=== PATIENT | male | born 1970 | race Two or more races ===

== ENCOUNTER 2020-11-06 18:20 | Emergency (ER) | payer BC, MEDICAID ==
[~2020-11-06] VITALS: Ht 180.3 cm; Wt 104.3 kg
[~2020-11-06 18:20] MED LIST: BENAZEPRIL; HCTZ; METOPROLOL
[2020-11-06 19:02] LABS: Basophils # (auto) 0.1 10 ^3/uL (0-0.2); Basophils % (auto) 1.2 % (0.0-2.0); Eosinophils # (auto) 0.2 10 ^3/uL (0-0.8); Eosinophils % (auto) 3.2 % (0.0-7.0); Hemoglobin 18.5 g/dL (13.5-17.5); Lymphocytes # (auto) 2.5 10 ^3/uL (0.4-5.4); Mean Corpuscular Hgb Conc. 36.3 g/dL (32.0-36.0); Mean Corpuscular Volume 85.4 fL (80.0-100.0); Monocytes # (auto) 0.8 10 ^3/uL (0-1.3); Red Blood Cells 5.97 10^6/uL (4.5-5.90)
[2020-11-06 19:03] LABS: Lymphocytes % (auto) 35.3 % (10.0-50.0); Monocytes % (auto) 11.4 % (0.0-12.0); Neutrophils # (auto) 3.5 10 ^3/uL (1.6-8.6); Neutrophils % (auto) 48.9 % (37.0-80.0); Nucleated Red Blood Cells % 0.6 %; Red Cell Distribution Width 12.9 % (11.8-14.3); White Blood Cell 7.2 10^3/uL (4.4-10.8)
[2020-11-06 19:25] LABS: Potassium 4.1 mmol/L (3.5-5.1)
[2020-11-06 19:36] LABS: Bilirubin, Total 0.8 mg/dL (0.2-1.0); Total Protein 8.5 g/dL (6.4-8.2)
[2020-11-06 21:30] VITALS: BP 137/83
== END 2020-11-06 21:46 | disposition home or self-care (01) ==
LOC: ER 18:22 → EDSEX 18:22 → ER 21:46
DX: R55 Syncope and collapse (principal); I10 Essential (primary) hypertension; Z79.899 Other long term (current) drug therapy
CPT/HCPCS: 36415; 70450; 71045; 80053; 84484; 85025; 93005

== ENCOUNTER 2025-02-24 10:43 | Inpatient (IN) | payer BC ==
[~2025-02-24] VITALS: Ht 180.3 cm; Wt 94.8 kg
--- NOTE | 2025-02-24 11:04 | ED.PDOC ---
History of Present Illness HPI Comments This is a 54 year old male presenting to the ED with chief complaint of abnormal labs. Patient reports that he had blood work ordered 2 days ago by his doctor after his right shoulder pain and weakness continued despite PT being done for possible "frozen shoulder". Patient relays that he received a call from his PCP today noting that his labs showed elevated liver enzymes and elevated muscle enzymes, advising him to come into the ED for further evaluation. Patient denies any chest pain, SOB, nausea, vomiting, abdominal pain, syncope, or injury at this time. Chief Complaint: Abnormal LAB's Time Seen by MD: 11:02 Reviewed Notes: Nurses Notes, Medications, Allergies Allergies: Coded Allergies: NO KNOWN ALLERGIES (Unverified , 09/01/10) Home Meds Reported Medications [Metoprolol] No Conflict Check 09/01/10 [Hctz] No Conflict Check 09/01/10 [Benazepril] No Conflict Check 09/01/10 Information Source: Patient Mode of Arrival: Ambulatory Severity: Moderate Timing: Days Duration: Since onset Prehospital treatment: None Past Medical History PAST MEDICAL HISTORY: HTN Surgical History: Denies all surgeries Family History Family History: Reviewed,noncontributory to illness, Family hx of DM, Family hx of Cancer, Family hx of heart casey Social History Smoker: Non-Smoker Alcohol: Occasionally Drugs: Denies Drug Use Lives In: Home Constitutional: reports: weakness; denies: chills, diaphoresis, fatigue, fever, malaise, sweats, others EENTM: denies: blurred vision, double vision, ear bleeding, ear discharge, ear drainage, ear pain, ear ringing, eye pain, eye redness, hearing loss, mouth pain, mouth swelling, nasal discharge, nose bleeding, nose congestion, nose pain, photophobia, tearing, throat pain, throat swelling, voice changes, others Respiratory: denies: cough, hemoptysis, orthopnea, SOB at rest, shortness of breath, SOB with excertion, stridor, wheezing, others Cardiovascular: denies: chest pain, dizzy spells, diaphoresis, Dyspnea on exertion, edema, irregular heart beat, left arm pain, lightheadedness, palpitations, PND, syncope, others Gastrointestinal: denies: abdomen distended, abdominal pain, blood streaked bowels, constipated, diarrhea, dysphagia, difficulty swallowing, hematemesis, melena, nausea, poor appetite, poor fluid intake, rectal bleeding, rectal pain, vomiting, others Genitourinary: denies: burning, dysuria, flank pain, frequency, hematuria, incontinence, penile discharge, penile sore, pain, testicle pain, testicle swelling, urgency, others Neurological: denies: dizziness, fainting, headache, left sided numbness, left sided weakness, numbness, paresthesia, pre-existing deficit, right sided numbness, right sided weakness, seizure, speech problems, tingling, tremors, weakness, others Musculoskeletal: reports: others (Rt shoulder pain); denies: back pain, gout, joint pain, joint swelling, muscle pain, muscle stiffness, neck pain Integumetry: denies: bruises, change in color, change in hair/nails, dryness, laceration, lesions, lumps, rash, wounds, others Allergic/Immunocompromised: denies: Difficulty Healing, Frequent Infections, Hives, Itching, others Hematologic/Lymphatic: denies: anemia, blood clots, easy bleeding, easy bruising, swollen glands, others Endocrine: denies: excessive hunger, excessive sweating, excessive thirst, excessive urination, flushing, intolerance to cold, intolerance to heat, unexplained weight gain, unexplained weight loss, others Psychiatric: denies: anxiety, bipolar disorder, depression, hopeless, panic disorder, schizophrenia, sleepless, suicidal, others All Other Systems: Reviewed and Negative Physical Exam General Appearance: Moderate Distress HEENT: Normal ENT Inspection, Pharynx Normal, TMs Normal Neck: Full Range of Motion, Non-Tender, Normal, Normal Inspection Respiratory: Chest Non-Tender, Lungs Clear, No Accessory Muscle Use, No Respiratory Distress, Normal Breath Sounds Cardiovascular: No Edema, No JVD, No Murmur, No Gallop, Normal Peripheral Pulses, Regular Rate/Rhythm Breast Exam: Deferred Gastrointestinal: Diffuse, No Organomegaly, No Pulsatile Mass, Normal Bowel Sounds, Soft, Tenderness Genitalia: Deferred Pelvic: Deferred Rectal: Deferred Extremities: No calf tenderness, Normal capillary refill, Normal inspection, Normal range of motion, Non-tender, No pedal edema Musculoskeletal : Apperance: Normal Neurologic: Alert, director 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 Was a procedure done?: No Differential Dx Considerations may include: Viral syndrome, rhabdomyolysis, elevated liver enzymes, generalized weakness X-Ray, Labs, Meds, VS Vital Signs Date Time Temp Pulse Resp B/P (MAP) Pulse Ox O2 Delivery O2 Flow Rate FiO2 02/24/25 10:56 86 02/24/25 10:44 97.8 94 18 151/82 96 97.8 Lab Test 02/24/25 11:10 Range/Units White Blood Count 9.5 4.4-10.8 10^3/uL Red Blood Count 5.64 4.5-5.90 10^6/uL Hemoglobin 16.4 13.5-17.5 g/dL Hematocrit 47.6 41.0-53.0 % Mean Corpuscular Volume 84.3 80.0-100.0 fL Mean Corpuscular Hemoglobin 29.1 28.0-32.0 pg Mean Corpuscular Hemoglobin Concent 34.5 32.0-36.0 g/dL Red Cell Distribution Width 15.9 H 11.8-14.3 % Platelet Count 228 140-450 10^3/uL Mean Platelet Volume 8.0 6.9-10.8 fL Neutrophils (%) (Auto) 73.4 37.0-80.0 % Lymphocytes (%) (Auto) 16.6 10.0-50.0 % Monocytes (%) (Auto) 7.0 0.0-12.0 % Eosinophils (%) (Auto) 1.9 0.0-7.0 % Basophils (%) (Auto) 1.1 0.0-2.0 % Neutrophils # (Auto) 7.0 1.6-8.6 10 ^3/uL Lymphocytes # (Auto) 1.6 0.4-5.4 10 ^3/uL Monocytes # (Auto) 0.7 0-1.3 10 ^3/uL Eosinophils # (Auto) 0.2 0-0.8 10 ^3/uL Basophils # (Auto) 0.1 0-0.2 10 ^3/uL Nucleated Red Blood Cells 0.0 % Sodium Level 139 136-145 mmol/L Potassium Level 4.6 3.5-5.1 mmol/L Chloride Level 98 98-107 mmol/L Carbon Dioxide Level 32 H 20-31 mmol/L Anion Gap 9 5-15 Blood Urea Nitrogen 13 9-23 mg/dL Creatinine 0.56 L 0.700-1.30 mg/dL Glomerular Filtration Rate Calc 118 >90 mL/min BUN/Creatinine Ratio 23.2 H 10.0-20.0 Serum Glucose 106 74-106 mg/dL Calcium Level 8.9 8.7-10.4 mg/dL Total Bilirubin 0.9 0.2-1.0 mg/dL Aspartate Amino Transferase (AST) 1243 H 13-40 U/L Alanine Aminotransferase (ALT) 1119 H 7-40 U/L Alkaline Phosphatase 33 L 46-116 U/L Creatine Kinase > 31809 H 46-171 U/L Troponin I High Sensitivity 35 </=54 ng/L Total Protein 7.5 5.7-8.2 g/dL Albumin 4.3 3.2-4.8 g/dL Lipase 44 12-53 U/L CAT scan of the abdomen and pelvis shows: IMPRESSION: Limited evaluation without contrast. No hydronephrosis/nephrolithiasis. Moderate volume stool in the colon. Prostatomegaly. Correlate with PSA levels. At this time, [place] [address] The ALT and AST are significantly elevated The patient is being admitted at this time An IV Hep-Lock was established and the patient was given 1 L bolus of normal saline The patient understands and agrees with the management. Images Reviewed?: Images reviewed and evaluated by me Time of 1ST Reevaluation: 12:51 Reevaluation 1ST: Unchanged Patient Education/Counseling: Diagnosis, Treatment, Prognosis Family Education/Counseling: No Family Present SEPSIS Sepsis Screen Date sepsis recognized/suspect: Feb 24, 2025 Time Sepsis recognized/suspect: 1046 Recent Procedure: No On Antibiotic Therapy: No Respiratory Rate >20: No Heart Rate >90: Yes Temp<36 C (96.8 F) or >38.3 C: No SBP <90 or MAP <65 mmHG: No New Acute Mental Status Change: No Is the patient on CPAP, BIPAP,: No Physician Orders Electrocardigram (02/24/25 11:03) Ct Ab Pel Wo Con-No Oral Or Iv (02/24/25 11:56) Heplock Iv (02/24/25 11:56) Psychological Operations Officer (02/24/25 11:56) Blood Pressure (02/24/25 11:56) Pulse Oximetry (02/24/25 11:56) Vital Signs Date Time Temp Pulse Resp B/P (MAP) Pulse Ox O2 Delivery O2 Flow Rate FiO2 02/24/25 10:56 86 02/24/25 10:44 97.8 94 18 151/82 96 97.8 Laboratory Tests Test 02/24/25 11:10 White Blood Count 9.5 10^3/uL (4.4-10.8) Departure 1 Departure Time of Disposition: 12:49 Impression: Primary Impression: Intractable abdominal pain Additional Impressions: Elevated CPK Elevated liver enzymes Disposition: ADMITTED INPATIENT Admit to: Med Surg Condition: Fair Critical Care Note Critical Care Time?: No Stability Stability form required: Yes Unstable for transfer: ED Physician Assesment (Clinical assesment) Heart Score Heart Score: Heart Score Response (Comments) Value History N/A 0 EKG N/A 0 Age N/A 0 Risk Factors N/A 0 Troponin N/A 0 Total 0 I personally scribed for CLAYTON DESIR MD ([email or web address]) on 02/24/25 at 11:04. Electronically submitted by Jayme Durán ([email or web address]). CLAYTON DESIR MD Feb 24, 2025 11:04
[2025-02-24 11:27] LABS: Hematocrit 47.6 % (41.0-53.0); Hemoglobin 16.4 g/dL (13.5-17.5); Mean Corpuscular Hemoglobin 29.1 pg (28.0-32.0); Mean Corpuscular Volume 84.3 fL (80.0-100.0); Nucleated Red Blood Cells % 0.0 %
[2025-02-24 11:41] LABS: Albumin 4.3 g/dL (3.2-4.8); Anion Gap 9 (5-15); BUN/Creatinine Ratio 23.2 (10.0-20.0); Bilirubin, Total 0.9 mg/dL (0.2-1.0); Blood Urea Nitrogen 13 mg/dL (9-23); Calcium 8.9 mg/dL (8.7-10.4); Chloride 98 mmol/L (98-107); Glucose 106 mg/dL (74-106); Potassium 4.6 mmol/L (3.5-5.1); Sodium 139 mmol/L (136-145); Total Protein 7.5 g/dL (5.7-8.2)
[2025-02-24 11:44] LABS: Alkaline Phosphatase 33 U/L (46-116); Carbon Dioxide 32 mmol/L (20-31)
[2025-02-24 11:52] LABS: Alanine Aminotransferase 1119 U/L (7-40)
[2025-02-24 11:53] LABS: Creatine Kinase IFCC > 39000 U/L (46-171)
--- NOTE | 2025-02-24 12:35 | DVH ---
Indication: PAIN Technique: CT axial images of the abdomen and pelvis are obtained without contrast. Coronal and sagit mario reformats were obtained. Comparison: None FINDINGS: There is limited interpretation of the abdomen and pelvis without administration of intravenous contr ast. Lung bases demonstrate no pleural effusion. Adrenal glands, spleen, pancreas and liver unremarkable in shape. No CT evidence for cholelithiasis. No hydronephrosis/ nephrolithiasis. Stomach is partially distended. Small bowel loops are normal in caliber. Moderate volume stool in the colon. Normal appendix. Abdominal aortic atherosclerotic disease. Bladder is partially distended. The prostate measures 6 cm transversely. No free pelvic fluid. No inguinal lymphadenopathy. No aggressive osseous process. [id number] thoracolumbar degenerative disc disease IMPRESSION: Limited evaluation without contrast. No hydronephrosis/nephrolithiasis. Moderate volume stool in the colon. Prostatomegaly. Correlate with PSA levels. Other findings as described.
--- NOTE | 2025-02-24 15:32 | ECG ---
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
[2025-02-24] MEDS: SODIUM CHLORIDE 0.9% 2,000 ML IV ONE (19:03)
[2025-02-24 19:10] VITALS: PULSE 81; RESP 20; O2SAT 97
[2025-02-24 20:52] LABS: Magnesium 1.8 mg/dL (1.6-2.6)
--- NOTE | 2025-02-24 21:40 | DVHHPRES ---
History of Present Illness Resident Creating Document: ERICKA DEE History of Present Illness Mr. Smith is a 54-year-old male with prior medical history of hypertension and hyperlipidemia, who presents today with chief complaint of bilateral shoulder and thigh weakness and abnormal labs. The patient states that a year ago he began to have stiffness in his left shoulder, later affecting his right shoulder as well, associated with weakness. He states he is currently unable to abduct his arms beyond 15 degrees. He states that 4-5 months ago he began to have stiffness and weakness in bilateral legs, mainly affecting quadriceps and hips. He states he has difficulty when trying to stand from a seated position and climbing stairs. Patient reports that for the last 2-3 weeks he has had difficulty swallowing food, it feels as if it gets stuck and needs to drink water to help food pass. He denies joint or muscular pain, nausea, vomiting, fever, recent trauma or infections, difficulty breathing, chest pain, palpitations, and other symptoms. The patient went to his PCP who conducted blood work and upon review of results told the patient to come to the emergency room. On evaluation in the ED, the patient was afebrile and vitals are stable. Initial labs show CBC within normal range, AST 1243, ALT 1119, ALP 30, and creatinine kinase >[address]. [address] shows now hydronephrosis/nephrolithiasis, moderate volume stool in the colon, and prostatomegaly. The patient was started on IV fluids and was admitted for further workup and monitoring. Cardiovascular: HTN, hyperipidemia Past Surgical History: None Family History: Cancer (Prostate cancer in father) Smoke: Quit (States he smoked a pack a weekend and stopped 30 years ago) ALCOHOL: none (Refers previous heavy drinking every weekend per states he quit 20 years ago) Drugs: Cocaine, Other (Reports previous history of methamphetamines states he used for five years and quit 30 years ago, reports previous use of PCP with sensation 30 years ago) Lives: with Family Domestic Violence: Neg Review of Systems Review of Systems Constitutional: Denies weight loss, fever and chills. HEENT: Denies changes in vision and hearing. Respiratory: Denies shortness of breath and cough Cardiovascular: Denies chest discomfort or palpitations GI: Refers dysphagia, Denies abdominal distention, abdominal pain, diarrhea : Denies dysuria and urinary frequency. Musculoskeletal: Refers proximal muscle weakness in shoulders and hips, denies muscle pain Skin: Denies rash and pruritus. Neurological: denies dizziness headache vision or hearing problems Allergies: Coded Allergies: NO KNOWN ALLERGIES (Unverified , 09/01/10) Medications Current Medications Medications Dose Ordered Sig/Dario Route Start Time Stop Time Status Last Admin Dose Admin Enoxaparin Sodium 40 mg DAILY SC 02/25/25 10:00 Sodium Chloride 1,000 ml @ 100 mls/hr Q10H IV 02/24/25 21:15 Methylprednisolone Sodium Succinate 40 mg BID IV 02/24/25 22:00 Pantoprazole Sodium 40 mg DAILY IV 02/24/25 21:15 Exam Vital Signs Vital Signs Date Time Temp Pulse Resp B/P (MAP) Pulse Ox O2 Delivery O2 Flow Rate FiO2 02/24/25 19:10 81 20 97 Room Air* 0 21 02/24/25 18:11 98.6 154/86 (108) 98.6 Exam General: The patient alert and oriented in person place and time. Patient following commands HEENT: Normocephalic, atraumatic, normal reactive pupils, EOM intact, pink conjunctiva, pink moist mucous membrane Respiratory/pulmonary: Bilateral chest expansion, no pain on palpation of chest wall, clear lungs bilaterally, vesicular murmurs present in almost all lung michael, no associated crackles or wheezes. Cardiovascular: Normal RRR, normal S1 and S2, no murmurs Abdomen: Abdomen nondistended, normal bowel sounds, soft, there is no pain to palpation in any of the abdominal quadrants, no palpable masses. Extremities: No deformities, there is no peripheral edema present at the lower extremities, normal pulses, inability to raise bilateral arms beyond 15 of abduction during active movements, no alteration of passive movements, inability to raise bilateral legs during active movement, no alterations during passive movements, no pain on palpation Skin: No rashes or pruritus, there is no sacral edema present at this time. Neurological: Intact cranial nerves with no focal neurologic deficits Labs/Xrays Labs Test 02/24/25 20:45 02/24/25 11:10 Range/Units White Blood Count 9.5 4.4-10.8 10^3/uL Red Blood Count 5.64 4.5-5.90 10^6/uL Hemoglobin 16.4 13.5-17.5 g/dL Hematocrit 47.6 41.0-53.0 % Mean Corpuscular Volume 84.3 80.0-100.0 fL Mean Corpuscular Hemoglobin 29.1 28.0-32.0 pg Mean Corpuscular Hemoglobin Concent 34.5 32.0-36.0 g/dL Red Cell Distribution Width 15.9 H 11.8-14.3 % Platelet Count 228 140-450 10^3/uL Mean Platelet Volume 8.0 6.9-10.8 fL Neutrophils (%) (Auto) 73.4 37.0-80.0 % Lymphocytes (%) (Auto) 16.6 10.0-50.0 % Monocytes (%) (Auto) 7.0 0.0-12.0 % Eosinophils (%) (Auto) 1.9 0.0-7.0 % Basophils (%) (Auto) 1.1 0.0-2.0 % Neutrophils # (Auto) 7.0 1.6-8.6 10 ^3/uL Lymphocytes # (Auto) 1.6 0.4-5.4 10 ^3/uL Monocytes # (Auto) 0.7 0-1.3 10 ^3/uL Eosinophils # (Auto) 0.2 0-0.8 10 ^3/uL Basophils # (Auto) 0.1 0-0.2 10 ^3/uL Nucleated Red Blood Cells 0.0 % Sodium Level 139 136-145 mmol/L Potassium Level 4.6 3.5-5.1 mmol/L Chloride Level 98 98-107 mmol/L Carbon Dioxide Level 32 H 20-31 mmol/L Anion Gap 9 5-15 Blood Urea Nitrogen 13 9-23 mg/dL Creatinine 0.56 L 0.700-1.30 mg/dL Glomerular Filtration Rate Calc 118 >90 mL/min BUN/Creatinine Ratio 23.2 H 10.0-20.0 Serum Glucose 106 74-106 mg/dL Hemoglobin A1c 5.6 <5.7 % A1C Calcium Level 8.9 8.7-10.4 mg/dL Phosphorus Level 3.9 2.4-5.1 mg/dL Magnesium Level 1.8 1.6-2.6 mg/dL Total Bilirubin 0.9 0.2-1.0 mg/dL Aspartate Amino Transferase (AST) 1243 H 13-40 U/L Alanine Aminotransferase (ALT) 1119 H 7-40 U/L Alkaline Phosphatase 33 L 46-116 U/L Creatine Kinase > 82654 H 46-171 U/L Troponin I High Sensitivity 35 </=54 ng/L Total Protein 7.5 5.7-8.2 g/dL Albumin 4.3 3.2-4.8 g/dL Lipase 44 12-53 U/L Vitamin B12 Level 344 211-911 pg/mL Vitamin D 25-Hydroxy 31.3 30.0-100 ng/mL Thyroid Stimulating Hormone (TSH) 3.57 0.55-4.78 uIU/mL SEPSIS Sepsis Screen Date sepsis recognized/suspect: Feb 24, 2025 Time Sepsis recognized/suspect: 1818 Recent Procedure: No On Antibiotic Therapy: No Respiratory Rate >20: No Heart Rate >90: No Temp<36 C (96.8 F) or >38.3 C: No SBP <90 or MAP <65 mmHG: No New Acute Mental Status Change: No Is the patient on CPAP, BIPAP,: No Physician Orders * Gi Dvh Repairer Handtools (02/24/25 16:59) Urinalysis (02/24/25 20:27) Drug Screen (02/24/25 20:27) Comprehensive Hepatitis Panel (02/24/25 20:27) Code Status (02/24/25 21:10) Enoxaparin Sodium (Lovenox) (02/25/25 10:00) Condition: Stable (02/24/25 21:10) Admit (02/24/25 21:10) Vital Signs .PER UNIT PROTOCOL (02/24/25 21:10) Review Orders With Adm. (02/24/25 21:10) Notify Md Of Changes From Base (02/24/25 21:10) Advance Directive (02/24/25 21:10) Patient Condition (02/24/25 21:10) Allergies (02/24/25 21:10) Stat Ekg For Chest Pain (02/24/25 21:10) Notify Md Of Changes From Base (02/24/25 21:10) Emergency Dysrhythmia Protocol (02/24/25 21:10) Rhythm Strips Once Every Shift (02/24/25 21:10) Regular Diet (02/25/25 Breakfast) Complete Blood Count (02/25/25 04:00) Comprehensive Metabolic Panel (02/25/25 04:00) Creatine Kinase (02/25/25 04:00) Aldolase (02/25/25 04:00) Lactate Dehydrogenase (02/25/25 04:00) Dayna; Comprehensive Panel (02/24/25 21:10) Acetaminophen (02/24/25 21:10) Sodium Chloride 0.9% (02/24/25 21:15) Methylprednisolone Sod Succ (Solu Medrol (02/24/25 22:00) Pantoprazole (Protonix) (02/24/25 21:15) * Radiologist Consult (02/24/25 21:10) Vital Signs Date Time Temp Pulse Resp B/P (MAP) Pulse Ox O2 Delivery O2 Flow Rate FiO2 02/24/25 19:10 81 20 97 Room Air* 0 21 02/24/25 18:11 98.6 94 20 154/86 (108) 96 98.6 02/24/25 18:11 94 20 96 Room Air Laboratory Tests Test 02/24/25 11:10 White Blood Count 9.5 10^3/uL (4.4-10.8) Medications Medications Dose Ordered Sig/Dario Route Start Time Stop Time Status Last Admin Dose Admin Sodium Chloride 2,000 ml @ 1,000 mls/hr Q2H ONCE IV 02/24/25 19:00 02/24/25 20:59 DC 02/24/25 19:03 1,000 MLS/HR Assessment/Plan Assessment/Plan Assessment and Plan: Possible Polymyositis -Methylprednisolone 40 mg IV b.i.d. -Protonix 40 mg IV daily -Aldolase and LDH have been ordered -DAYNA comprehensive panel has been ordered -Radiology consult for muscle biopsy has been ordered Rhabdomyolysis secondary to above - NS 1000 cc bolus once - NS maintenance 100 cc/hr - Monitor kidney function Transaminitis likely due to above - Comprehensive hepatitis panel has been ordered - GI consult has been ordered - Monitor LFTs Hypertension - Monitor BP - Currently not on any home medications Hyperlipidemia - Currently diet controlled Diet: Regular DVT prophylaxis: Lovenox 40 mg SC daily GI prophylaxis: Protonix mg IV daily Case discussed with Dr. German Goals of care discussed with the patient and his at bedside for over 25 minutes. Full code. Plan discussed with: Patient, Spouse, Other (Nurses) My Orders Orders - ERICKA DEE RESIDENT Procedure Category Date Status Time Urinalysis LAB 02/24/25 Logged 20:27 Drug Screen LAB 02/24/25 Logged 20:27 Comprehensive LAB 02/24/25 In Process Hepatitis Panel 20:27 Code Status CODE 02/24/25 Transmitted 21:10 Enoxaparin Sodium PHA 02/25/25 In Process (Lovenox) 10:00 Condition: Stable KIMBERLY 02/24/25 In Process 21:10 Admit ADMIT 02/24/25 Transmitted 21:10 Vital Signs KIMBERLY 02/24/25 In Process 21:10 Review Orders With [facility] 02/24/25 In Process Adm.Md 21:10 Notify Md Of Changes [facility] 02/24/25 In Process From Base 21:10 Advance Directive [facility] 02/24/25 In Process 21:10 Patient Condition ORDERS 02/24/25 Transmitted 21:10 Allergies KIMBERLY 02/24/25 In Process 21:10 Stat Ekg For Chest [facility]IM[facility] 02/24/25 In Process Pain 21:10 Notify Md Of Changes [facility] 02/24/25 In Process From Base 21:10 Emergency Dysrhythmia [facility] 02/24/25 In Process Protocol 21:10 Rhythm Strips Once [facility] 02/24/25 In Process Every Shift 21:10 Regular Diet DIET 02/25/25 Transmitted Breakfast Complete Blood Count LAB 02/25/25 Verified 04:00 Comprehensive LAB 02/25/25 Verified Metabolic Panel 04:00 Creatine Kinase LAB 02/25/25 Verified 04:00 Aldolase LAB 02/25/25 Verified 04:00 Lactate Dehydrogenase LAB 02/25/25 Verified 04:00 Dayna; Comprehensive LAB 02/24/25 Logged Panel 21:10 Acetaminophen LAB 02/24/25 In Process 21:10 Sodium Chloride 0.9% PHA 02/24/25 In Process 21:15 Methylprednisolone PHA 02/24/25 In Process Sod Succ (Solu Medrol 22:00 Pantoprazole PHA 02/24/25 In Process (Protonix) 21:15 * Radiologist Consult CONS 02/24/25 Transmitted 21:10 Date of Service: Feb 24, 2025 Billing Provider: DAMIEN HONG MD Common Visit Codes: [id number] INP/OBS CARE (HIGH) Secondary Visit Codes: [id number] CARE PLAN 30 MINUTES ERICKA DEE RESIDENT Feb 24, 2025 21:40 JEREMIAS WALDEN RESIDENT Feb 25, 2025 04:36
[2025-02-24 22:00] VITALS: RESP 22; O2SAT 97
[2025-02-24] MEDS: SODIUM CHLORIDE 0.9% 1,000 ML IV SCH (22:25)
[2025-02-24] MEDS: PANTOPRAZOLE 40 MG/10 ML VIAL INJ IV SCH (22:25)
[2025-02-24] MEDS: methylPREDNISolone SOD SUCC 40 MG/ML VL IV SCH (22:25)
[2025-02-24 23:26] VITALS: BP 136/89; PULSE 77; RESP 17; TEMP 98.7; O2SAT 95
[2025-02-25 00:57] VITALS: BP 135/84; PULSE 86; RESP 18; TEMP 98.6; O2SAT 95
[2025-02-25 02:55] LABS: Urine Protein, UAD 1+ (Negative)
[2025-02-25 03:47] LABS: Amphetamine Screen, Urine Neg (NEGATIVE); Barbiturate Scree,Urine Neg (NEGATIVE); Benzodiazephine Screen, Urine Neg (NEGATIVE); Cannabinoid Screen, Urine Neg (NEGATIVE); Cocaine Screen, Urine Neg (NEGATIVE); Opiate Scree,Urine Neg (NEGATIVE); Phencyclidine Screen, Urine Neg (NEGATIVE)
[2025-02-25 04:47] VITALS: BP 145/79; PULSE 79; RESP 17; TEMP 97.9; O2SAT 97
[2025-02-25 06:03] LABS: Hematocrit 46.6 % (41.0-53.0); Hemoglobin 16.2 g/dL (13.5-17.5); Mean Corpuscular Hemoglobin 29.4 pg (28.0-32.0); Mean Corpuscular Volume 84.7 fL (80.0-100.0); Nucleated Red Blood Cells % 0.0 %
[2025-02-25 06:14] LABS: Albumin 3.7 g/dL (3.2-4.8); Anion Gap 9 (5-15); BUN/Creatinine Ratio 29.4 (10.0-20.0); Blood Urea Nitrogen 15 mg/dL (9-23); Carbon Dioxide 26 mmol/L (20-31); Chloride 104 mmol/L (98-107); Potassium 4.2 mmol/L (3.5-5.1); Sodium 139 mmol/L (136-145); Total Protein 6.5 g/dL (5.7-8.2)
[2025-02-25 06:15] LABS: Bilirubin, Total 0.7 mg/dL (0.2-1.0)
[2025-02-25 06:17] LABS: Alanine Aminotransferase 930 U/L (7-40); Alkaline Phosphatase 30 U/L (46-116); Calcium 8.4 mg/dL (8.7-10.4); Glucose 152 mg/dL (74-106)
[2025-02-25 06:25] LABS: Creatine Kinase IFCC 28735 U/L (46-171)
[2025-02-25 08:00] LABS: INR 1.06 (0.9-1.15); Partial Thromboplastin Time 29.0 SEC (24.5-34.5); Prothrombin Time 11.2 sec (9.3-11.8)
[2025-02-25 09:00] VITALS: BP 132/79; PULSE 72; RESP 16; TEMP 98; O2SAT 94
--- NOTE | 2025-02-25 10:08 | DVHPNRES ---
Progress Note Date Seen: Feb 25, 2025 Resident Creating Document: ELTON RODRIGUEZ RESIDENT Medical Necessity Reason Pt with a Central, PICC or Fol: No Subjective Review of Systems Patient is 54-year-old male with prior medical history of hypertension and hyperlipidemia, who presents today with chief complaint of bilateral shoulder and thigh weakness and abnormal labs. The patient states that a year ago he began to have stiffness in his left shoulder, later affecting his right shoulder as well, associated with weakness. He states he is currently unable to abduct his arms beyond 15 degrees. He states that 4-5 months ago he began to have stiffness and weakness in bilateral legs, mainly affecting quadriceps and hips. He states he has difficulty when trying to stand from a seated position and climbing stairs. Patient reports that for the last 2-3 weeks he has had difficulty swallowing food, it feels as if it gets stuck and needs to drink water to help food pass. He denies joint or muscular pain, nausea, vomiting, fever, recent trauma or infections, difficulty breathing, chest pain, palpitations, and other symptoms. The patient went to his PCP who conducted blood work and upon review of results told the patient to come to the emergency room. Patient reported he used to take en clomiphene, then tested stone, lately he was taking herbal medication. On evaluation in the ED, the patient was afebrile and vitals are stable. Initial labs show CBC within normal range, AST 1243, ALT 1119, ALP 30, likely dehydrogenase 2821, and creatinine kinase >15168. Abdominal pelvis [address] shows now hydronephrosis/nephrolithiasis, moderate volume stool in the colon, and prostatomegaly. UDS negative. Plasma alcohol< 3. Urinalysis negative for UTI. Cardiovascular: HTN, hyperipidemia Past Surgical History: None Family History: Cancer (Prostate cancer in father) Smoke: Quit (States he smoked a pack a weekend and stopped 30 years ago) ALCOHOL: none (Refers previous heavy drinking every weekend per states he quit 20 years ago) Drugs: Cocaine, Other (Reports previous history of methamphetamines states he used for five years and quit 30 years ago, reports previous use of PCP with sensation 30 years ago) Lives: with Family Patient was seen today at bedside, labs and chart reviewed. Patient with difficulty from getting came from the chair with the support. Patient used to take enclomiphene, testosterone, of the hardware medications. Denied acute muscle pain or tenderness. Ordered serum cortisol level, acute hepatitis panel, blood alcohol level. Patient reported almost 6 lb of weight over last couple of months. But did not any fever. Plan is to monitor CK trend tomorrow morning. Objective vital signs Vital Sign Date Time Temp Pulse Resp B/P (MAP) Pulse Ox O2 Delivery O2 Flow Rate FiO2 02/25/25 04:47 97.9 79 17 145/79 (101) 97 97.9 02/24/25 23:26 Room Air* 0 21 Total Intake and Output 02/24/25 02/24/25 02/25/25 15:00 23:00 07:00 Intake Total 600 ml Balance 600 ml medications Current Medications Medications Dose Ordered Sig/Dario Route Start Time Stop Time Status Last Admin Dose Admin Enoxaparin Sodium 40 mg DAILY SC 02/25/25 10:00 Methylprednisolone Sodium Succinate 40 mg BID IV 02/24/25 22:00 02/24/25 22:25 40 MG Pantoprazole Sodium 40 mg DAILY IV 02/24/25 21:15 02/24/25 22:25 40 MG Sodium Chloride 1,000 ml @ 250 mls/hr Q4H IV 02/25/25 08:15 Examination General examination- awake, alert, oriented HEENT- PEERLA, no acute nasal discharge Cardiovascular- S1-S2 audible, rate and rhythm regular, no murmur Respiratory- CTAB, no wheeze or rhonchi Gastrointestinal-nontender, bowel sound+. Nondistended Musculoskeletal-no acute joint swelling or tenderness or redness extremity-no leg edema, has a difficulty getting off the chair with the support, patient also could raise his bilateral upper extremity up to 15 degree. Neurological- cranial nerves intact, no acute dysarthria or dysphagia Psychiatry- denies depression or SI or HI Skin- no acute rash or purpura laboratory and microbiology Laboratory Tests 02/25/25 05:08 Test 02/25/25 05:08 Range/Units Serum Glucose 152 H 74-106 mg/dL Problem List/Assessment/Plan Problem List/Assessment/Plan Assessment and plan-rhabdomyolysis with a transaminitis under evaluation, pending CLIMATOLOGY PROFESSOR, serum cortisol a.m. and p.m.. We will continue IV fluid for now 250 mL/hour, we will titrate dose tomorrow morning. No steroid at this moment. We will monitor CMP, CBC, CK. #Possible Polymyositis, # muscle stiffness of the shoulder girdle and hip muscle -patient complained of weakness in the shoulder girdle and hip muscle -limited range of motion in the shoulder and hip -denied using statin, TSH with a normal limit, no vigorous exercise lately. -AST 1243, ALT 1119, alkaline phosphatase 33, CPK> 76103 -pending DAYNA, Zulma 1 antibody, chromatin antibody, centromere antibody. CLIMATOLOGY PROFESSOR -TSH with a normal limit -continue current conservative management #Rhabdomyolysis secondary to above - NS maintenance 250 0 mL/hour - Monitor kidney function #Transaminitis likely due to above --AST 1243, ALT 1119, alkaline phosphatase 33 -pending acute hepatitis panel - Monitor LFTs #Hypertension - Monitor BP - Currently not on any home medications #Hyperlipidemia - Currently diet controlled Goals of care, Code status ; discussed with >15 minutes PUD prophylaxis: Pantoprazole DVT prophylaxis: Lovenox Plan discussed with Dr. Sprague , nursing staff, Total time spent on patient evaluation, chart review, assessment and plan, discussion discussion >35 minutes Plan discussed with: Patient, Spouse, Other (RN) My Orders My Orders Orders - ELTON RODRIGUEZ Procedure Category Date Status Time Dayna; Direct LAB 02/25/25 In Process 08:01 Sodium Chloride 0.9% PHA 02/25/25 In Process 08:15 Erythrocyte LAB 02/25/25 In Process Sedimentation Rate 08:20 Date of Service: Feb 25, 2025 Billing Provider: SARAH SPRAGUE MD Common Visit Codes: [id number] INP/OBS CARE(HIGH) ELTON RODRIGUEZ Feb 25, 2025 10:08 SARAH SPRAGUE MD Feb 25, 2025 20:03
[2025-02-25] MEDS: ENOXAPARIN SOD 40 MG/0.4 ML SYRINGE SC SCH (10:53)
[2025-02-25] MEDS: SODIUM CHLORIDE 0.9% 1,000 ML IV SCH ×2 (10:53→21:00)
[2025-02-25 11:46] LABS: Hepatitis B Surface Antigen Negative (Negative)
--- NOTE | 2025-02-25 12:50 | DVHINCON2 ---
GI Consult Consult Note GI consult note Date of Consultation: 02/25/2025 Chief Complaint: Elevated liver enzymes Referring Physician: Dr. Mayfield H&P: 54-year-old male presented to ER with complains of bilateral shoulder and thigh weakness with abnormal labs. GI was consulted for elevated liver enzymes. Patient denies abdominal pain. No nausea or vomiting. Denies melena or red blood in stool. No EGD or colonoscopy in past. Denies history of hepatitis. Occasional difficulty swallowing with certain foods and needs to drink water to help pass the food. Patient admits to having an alcoholic drink every two weeks. Denies use of Tylenol Past Medical History: HTN, hyperipidemia Past Surgical History: Denies Social History: Smoke: Quit (States he smoked a pack a weekend and stopped 30 years ago) ALCOHOL: none (Refers previous heavy drinking every weekend per states he quit 20 years ago) Drugs: Cocaine, Other (Reports previous history of methamphetamines states he used for five years and quit 30 years ago, reports previous use of PCP with sensation 30 years ago) Lives: with Family Family History: Noncontributory Review of Systems: Constitutional: no fever, chill, weight loss HEENT: no eye pain, no hearing loss, no oral lesion, no scleral icterus Heart: no chest pain, no chest pressure Lung: no cough, no dyspnea with exertion Abdomen: see HPI Physical exam: General: NAD, AAOX3 Chest: lung michael clear to auscultation Heart: RRR, no murmur Abdomen: non-distended, no tenderness to palpation, +BS Labs: Labs Test 02/25/25 11:06 02/25/25 05:08 02/25/25 05:05 02/25/25 02:05 Range/Units Plasma/Serum Blood Alcohol < 3.0 <10 mg/dL Hepatitis B Surface Antigen Negative Negative White Blood Count 8.9 4.4-10.8 10^3/uL Red Blood Count 5.50 4.5-5.90 10^6/uL Hemoglobin 16.2 13.5-17.5 g/dL Hematocrit 46.6 41.0-53.0 % Mean Corpuscular Volume 84.7 80.0-100.0 fL Mean Corpuscular Hemoglobin 29.4 28.0-32.0 pg Mean Corpuscular Hemoglobin Concent 34.7 32.0-36.0 g/dL Red Cell Distribution Width 15.7 H 11.8-14.3 % Platelet Count 219 140-450 10^3/uL Mean Platelet Volume 8.3 6.9-10.8 fL Neutrophils (%) (Auto) 88.3 H 37.0-80.0 % Lymphocytes (%) (Auto) 9.1 L 10.0-50.0 % Monocytes (%) (Auto) 2.2 0.0-12.0 % Eosinophils (%) (Auto) 0.1 0.0-7.0 % Basophils (%) (Auto) 0.3 0.0-2.0 % Neutrophils # (Auto) 7.9 1.6-8.6 10 ^3/uL Lymphocytes # (Auto) 0.8 0.4-5.4 10 ^3/uL Monocytes # (Auto) 0.2 0-1.3 10 ^3/uL Eosinophils # (Auto) 0 0-0.8 10 ^3/uL Basophils # (Auto) 0 0-0.2 10 ^3/uL Nucleated Red Blood Cells 0.0 % Erythrocyte Sedimentation Rate 2 0-20 mm/hr Prothrombin Time 11.2 9.3-11.8 sec Prothrombin Time INR 1.06 0.9-1.15 Activated Partial Thromboplast Time 29.0 24.5-34.5 SEC Sodium Level 139 136-145 mmol/L Potassium Level 4.2 3.5-5.1 mmol/L Chloride Level 104 98-107 mmol/L Carbon Dioxide Level 26 20-31 mmol/L Anion Gap 9 5-15 Blood Urea Nitrogen 15 9-23 mg/dL Creatinine 0.51 L 0.700-1.30 mg/dL Glomerular Filtration Rate Calc 121 >90 mL/min BUN/Creatinine Ratio 29.4 H 10.0-20.0 Serum Glucose 152 H 74-106 mg/dL Calcium Level 8.4 L 8.7-10.4 mg/dL Total Bilirubin 0.7 0.2-1.0 mg/dL Aspartate Amino Transferase (AST) 968 H 13-40 U/L Alanine Aminotransferase (ALT) 930 H 7-40 U/L Alkaline Phosphatase 30 L 46-116 U/L Lactate Dehydrogenase 2821 H 120-246 U/L Creatine Kinase 34001 H 46-171 U/L C-Reactive Protein High Sensitivity 0.74 <1.0 mg/dL Total Protein 6.5 5.7-8.2 g/dL Albumin 3.7 3.2-4.8 g/dL Urine Color Yellow Yellow Urine Clarity Clear Clear Urine pH 6.5 5.0-9.0 Urine Specific Canvas 1.019 1.001-1.035 Urine Protein 1+ H Negative Urine Ketones Negative Negative Urine Blood 3+ H Negative /uL Urine Nitrite Negative Negative Urine Bilirubin Negative Negative Urine Urobilinogen 4 H Negative mg/dL Urine Leukocyte Esterase Negative Negative /uL Urine RBC <1 0 - 3 /hpf Urine Microscopic WBC < 1 0-3 /HPF Urine Squamous Epithelial Cells None seen <5 /hpf Urine Bacteria None seen None Seen /hpf Urine Glucose Normal Normal mg/dL Urine Opiates Screen Neg NEGATIVE Urine Fentanyl Screen Neg NEGATIVE Urine Barbiturates Screen Neg NEGATIVE Urine Phencyclidine Screen Neg NEGATIVE Urine Amphetamines Screen Neg NEGATIVE Urine Benzodiazepines Screen Neg NEGATIVE Urine Cocaine Screen Neg NEGATIVE Urine Cannabinoids Screen Neg NEGATIVE Test 02/24/25 20:45 02/24/25 11:10 Range/Units Acetaminophen Level < 2.0 L 10.0-20.0 UG/ML Hemoglobin A1c 5.6 <5.7 % A1C Phosphorus Level 3.9 2.4-5.1 mg/dL Magnesium Level 1.8 1.6-2.6 mg/dL Troponin I High Sensitivity 35 </=54 ng/L Lipase 44 12-53 U/L Vitamin B12 Level 344 211-911 pg/mL Vitamin D 25-Hydroxy 31.3 30.0-100 ng/mL Thyroid Stimulating Hormone (TSH) 3.57 0.55-4.78 uIU/mL Imaging: CT abdomen pelvis IMPRESSION: Limited evaluation without contrast. No hydronephrosis/nephrolithiasis. Moderate volume stool in the colon. Prostatomegaly. Correlate with PSA levels. Other findings as described. Assessment: Possible polymyositis Rhabdomyolysis Elevated liver enzymes probably above reasons Plan: Discussed with Dr. Chris Monitor lab DC alcohol discussed Outpatient GI follow-up recommended for elective GI procedures as needed Discussed plan with patient and at bedside Thank you for this consult Date of Service: Feb 25, 2025 Billing Provider: MARILIN BHATTI Common Visit Codes: CONSULT ONLY Consultation Codes: [id number] CONSULT <60MIN MARILIN BHATTI Feb 25, 2025 12:50
[2025-02-25 12:56] LABS: Hepatitis C Antibody Negative (Negative)
[2025-02-25 13:00] VITALS: BP 146/83; PULSE 86; RESP 18; TEMP 98.1; O2SAT 97
[2025-02-25 17:00] VITALS: BP 136/88; PULSE 82; RESP 17; TEMP 98.3; O2SAT 96
[2025-02-25 21:00] VITALS: BP 137/77; PULSE 79; RESP 19; TEMP 98.2; O2SAT 96
[2025-02-26] VITALS (7 sets, daily range): BP systolic 129–155; BP diastolic 68–94; PULSE 70–88; RESP 16–18; TEMP 97.8–98.3; O2SAT 95–98
[2025-02-26 07:02] LABS: Hematocrit 42.7 % (41.0-53.0); Hemoglobin 14.7 g/dL (13.5-17.5); Mean Corpuscular Hemoglobin 29.2 pg (28.0-32.0); Mean Corpuscular Volume 84.6 fL (80.0-100.0); Nucleated Red Blood Cells % 0.1 %
[2025-02-26 07:12] LABS: Alanine Aminotransferase 821 U/L (7-40); Albumin 3.4 g/dL (3.2-4.8); Alkaline Phosphatase 28 U/L (46-116); Anion Gap 11 (5-15); BUN/Creatinine Ratio 25.0 (10.0-20.0); Bilirubin, Total 0.7 mg/dL (0.2-1.0); Blood Urea Nitrogen 10 mg/dL (9-23); Calcium 7.9 mg/dL (8.7-10.4); Carbon Dioxide 26 mmol/L (20-31); Chloride 107 mmol/L (98-107); Glucose 109 mg/dL (74-106); Magnesium 1.7 mg/dL (1.6-2.6); Potassium 3.4 mmol/L (3.5-5.1); Sodium 144 mmol/L (136-145); Total Protein 6.1 g/dL (5.7-8.2)
[2025-02-26 07:47] LABS: Creatine Kinase IFCC 20895 U/L (46-171)
[2025-02-26] MEDS: SODIUM CHLORIDE 0.9% 1,000 ML IV SCH (11:00)
[2025-02-26 11:07] LABS: Anti-Centromere B Antibody <0.2 AI (0.0-0.9); Anti-Jo-1 Antibody <0.2 AI (0.0-0.9); Anti-dsDNA Antibody <1 IU/mL (0-9); Antichromatin Antibody <0.2 AI (0.0-0.9); Antiscleroderma-70 Antibody <0.2 AI (0.0-0.9); Sjogren's Anti-SS-A Antibody 0.2 AI (0.0-0.9); Sjogren's Anti-SS-B Antibody <0.2 AI (0.0-0.9)
--- NOTE | 2025-02-26 13:13 | DVHPNRES ---
Progress Note Date Seen: Feb 26, 2025 Resident Creating Document: JOHN DOWLING RESIDENT Medical Necessity Reason Pt with a Central, PICC or Fol: No Subjective Review of Systems Subjective Review of Systems Patient is 54-year-old male with prior medical history of hypertension and hyperlipidemia, who presents today with chief complaint of bilateral shoulder and thigh weakness and abnormal labs. The patient states that a year ago he began to have stiffness in his left shoulder, later affecting his right shoulder as well, associated with weakness. He states he is currently unable to abduct his arms beyond 15 degrees. He states that 4-5 months ago he began to have stiffness and weakness in bilateral legs, mainly affecting quadriceps and hips. He states he has difficulty when trying to stand from a seated position and climbing stairs. Patient reports that for the last 2-3 weeks he has had difficulty swallowing food, it feels as if it gets stuck and needs to drink water to help food pass. He denies joint or muscular pain, nausea, vomiting, fever, recent trauma or infections, difficulty breathing, chest pain, palpitations, and other symptoms. The patient went to his PCP who conducted blood work and upon review of results told the patient to come to the emergency room. Patient reported he used to take en clomiphene, then tested stone, lately he was taking herbal medication. On evaluation in the ED, the patient was afebrile and vitals are stable. Initial labs show CBC within normal range, AST 1243, ALT 1119, ALP 30, likely dehydrogenase 2821, and creatinine kinase >53065. Abdominal pelvis CT shows now hydronephrosis/nephrolithiasis, moderate volume stool in the colon, and prostatomegaly. UDS negative. Plasma alcohol< 3. Urinalysis negative for UTI. Cardiovascular: HTN, hyperipidemia Past Surgical History: None Family History: Cancer (Prostate cancer in father) Smoke: Quit (States he smoked a pack a weekend and stopped 30 years ago) ALCOHOL: none (Refers previous heavy drinking every weekend per states he quit 20 years ago) Drugs: Cocaine, Other (Reports previous history of methamphetamines states he used for five years and quit 30 years ago, reports previous use of PCP with sensation 30 years ago) Lives: with Family Interval events 02/26/2025 Patient mentioned no active symptoms Input/output 4290/5000 with a net negative of 710 ml Objective vital signs Vital Sign Date Time Temp Pulse Resp B/P (MAP) Pulse Ox O2 Delivery O2 Flow Rate FiO2 02/26/25 09:00 97.8 80 18 139/78 (98) 95 97.8 02/26/25 08:00 Room Air* 0 21 Total Intake and Output 02/25/25 02/25/25 02/26/25 15:00 23:00 07:00 Intake Total 1000 ml 250 ml 3040 ml Output Total 900 ml 4100 ml Balance 1000 ml -650 ml -1060 ml medications Current Medications Medications Dose Ordered Sig/Dario Route Start Time Stop Time Status Last Admin Dose Admin Enoxaparin Sodium 40 mg DAILY SC 02/25/25 10:00 02/26/25 09:53 40 MG Sodium Chloride 1,000 ml @ 100 mls/hr Q10H IV 02/26/25 11:00 Pantoprazole Sodium 40 mg DAILY@0600 PO 02/27/25 06:00 Examination Examination General Appearance: Alert, Oriented X3, Cooperative, No acute distress HEENT: EOMI Respiratory: Clear to auscultation, Normal air movement Cardiovascular: Regular rate, Normal S1, Normal S2 Abdominal: Normal bowel sounds Extremities: No cyanosis, No edema, Normal pulses, No tenderness/swelling Skin: No rashes, No breakdown Neuro: Normal gait, Normal speech, Strength at 5/5 X4 ext, Normal tone, Sensation intact, Cranial nerves 3-12 NL, Reflexes 2+ Psych/Mental Status: Mental status NL, Mood NL laboratory and microbiology Laboratory Tests 02/26/25 06:56 02/26/25 05:22 Test 02/26/25 06:56 Range/Units Serum Glucose 109 H 74-106 mg/dL Labs and/or images reviewed: Labs reviewed by me, Image(s) reviewed by me Problem List/Assessment/Plan Problem List/Assessment/Plan Assessment/plan # rhabdomyolysis due to ? Polymyositis, ? Alcohol use disorder, herbal medications ? Testosterone intake IV fluids Strict input-output Monitor creatine kinase Aldolase Liver enzymes Kidney function monitor Urinalysis # transaminitis due to above Monitor IV fluids CT abdomen and pelvis # herbal supplementation use Patient advised to avoid turmeric # proximal myopathy? Polymyositis -patient complained of weakness in the shoulder girdle and hip muscle -limited range of motion in the shoulder and hip -denied using statin, TSH with a normal limit, no vigorous exercise lately. -pending ALLI, Zulma 1 antibody, chromatin antibody, centromere antibody. 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 Possible DC plan in next 24-48 hours. Goals of care, Code status ; discussed with >15 minutes PUD prophylaxis: Pantoprazole DVT prophylaxis: Lovenox Plan discussed with Dr. brink , nursing staff, Total time spent on patient evaluation, chart review, assessment and plan, discussion discussion >35 minutes Plan discussed with: Patient, Spouse, Other (RN) Plan discussed with: Patient, Other My Orders My Orders Orders - JOHN DOWLING RESIDENT Procedure Category Date Status Time Sodium Chloride 0.9% PHA 02/26/25 In Process 11:00 Urinalysis LAB 02/26/25 Logged 11:06 Pantoprazole Tablet PHA 02/27/25 In Process (Protonix Tablet) 06:00 Complete Blood Count LAB 02/27/25 Verified 04:00 Comprehensive LAB 02/27/25 Verified Metabolic Panel 04:00 Magnesium LAB 02/27/25 Verified 04:00 Rheumatoid Arthritis LAB 02/26/25 In Process Factor 11:11 Complement C3 & C4 LAB 02/26/25 In Process 11:11 Date of Service: Feb 26, 2025 Billing Provider: RAMYA BRNIK DO Common Visit Codes: [id number] INP/OBS CARE(HIGH) JOHN DOWLING RESIDENT Feb 26, 2025 13:13 RAMYA BRINK DO Mar 01, 2025 00:01
[2025-02-27] VITALS (8 sets, daily range): BP systolic 136–150; BP diastolic 80–94; PULSE 69–88; RESP 16–18; TEMP 97.5–99.4; O2SAT 94–98
[2025-02-27 04:58] LABS: Urine Protein, UAD 1+ (Negative)
[2025-02-27] MEDS: PANTOPRAZOLE 40 MG TAB PO SCH (05:26)
[2025-02-27 06:49] LABS: Hematocrit 44.7 % (41.0-53.0); Hemoglobin 15.5 g/dL (13.5-17.5); Mean Corpuscular Hemoglobin 29.1 pg (28.0-32.0); Mean Corpuscular Volume 83.7 fL (80.0-100.0); Nucleated Red Blood Cells % 0.1 %
[2025-02-27 07:14] LABS: Albumin 3.6 g/dL (3.2-4.8); Anion Gap 10 (5-15); BUN/Creatinine Ratio 23.8 (10.0-20.0); Bilirubin, Total 0.7 mg/dL (0.2-1.0); Blood Urea Nitrogen 10 mg/dL (9-23); Carbon Dioxide 29 mmol/L (20-31); Chloride 103 mmol/L (98-107); Glucose 92 mg/dL (74-106); Magnesium 1.9 mg/dL (1.6-2.6); Potassium 3.9 mmol/L (3.5-5.1); Sodium 142 mmol/L (136-145); Total Protein 6.4 g/dL (5.7-8.2)
[2025-02-27 07:17] LABS: Alanine Aminotransferase 863 U/L (7-40); Alkaline Phosphatase 28 U/L (46-116); Calcium 8.2 mg/dL (8.7-10.4)
[2025-02-27 07:49] LABS: Creatine Kinase IFCC 21637 U/L (46-171)
--- NOTE | 2025-02-27 11:22 | DVHPNRES ---
Progress Note Date Seen: Feb 27, 2025 Resident Creating Document: ELTON RODRIGUEZ RESIDENT Medical Necessity Reason Pt with a Central, PICC or Fol: No Subjective Review of Systems Patient is 54-year-old male with prior medical history of hypertension and hyperlipidemia, who presents today with chief complaint of bilateral shoulder and thigh weakness and abnormal labs. The patient states that a year ago he began to have stiffness in his left shoulder, later affecting his right shoulder as well, associated with weakness. He states he is currently unable to abduct his arms beyond 15 degrees. He states that 4-5 months ago he began to have stiffness and weakness in bilateral legs, mainly affecting quadriceps and hips. He states he has difficulty when trying to stand from a seated position and climbing stairs. Patient reports that for the last 2-3 weeks he has had difficulty swallowing food, it feels as if it gets stuck and needs to drink water to help food pass. He denies joint or muscular pain, nausea, vomiting, fever, recent trauma or infections, difficulty breathing, chest pain, palpitations, and other symptoms. The patient went to his PCP who conducted blood work and upon review of results told the patient to come to the emergency room. Patient reported he used to take en clomiphene, then tested stone, lately he was taking herbal medication. On evaluation in the ED, the patient was afebrile and vitals are stable. Initial labs show CBC within normal range, AST 1243, ALT 1119, ALP 30, likely dehydrogenase 2821, and creatinine kinase >86575. Abdominal pelvis [address] shows now hydronephrosis/nephrolithiasis, moderate volume stool in the colon, and prostatomegaly. UDS negative. Plasma alcohol< 3. Urinalysis negative for UTI. Cardiovascular: HTN, hyperipidemia Past Surgical History: None Family History: Cancer (Prostate cancer in father) Smoke: Quit (States he smoked a pack a weekend and stopped 30 years ago) ALCOHOL: none (Refers previous heavy drinking every weekend per states he quit 20 years ago) Drugs: Cocaine, Other (Reports previous history of methamphetamines states he used for five years and quit 30 years ago, reports previous use of PCP with sensation 30 years ago) Lives: with Family Patient was seen today at bedside, labs and chart reviewed. AST 1243> 968> 826, ALT 1119> 930> 863, alkaline phosphatase 33, CPK> 08977> > 80448. No acute complaint, patient reports feeling a little bit better. We will continue current IV fluid 100 mL/hour. We will follow up with the labs. Possible discharge tomorrow Objective vital signs Vital Sign Date Time Temp Pulse Resp B/P (MAP) Pulse Ox O2 Delivery O2 Flow Rate FiO2 02/27/25 08:55 99.4 77 18 144/90 (108) 97 99.4 02/27/25 08:00 Room Air* 0 21 Total Intake and Output 02/26/25 02/26/25 02/27/25 15:00 23:00 07:00 Intake Total 1600 ml 300 ml Output Total 2500 ml Balance -900 ml 300 ml medications Current Medications Medications Dose Ordered Sig/Dario Route Start Time Stop Time Status Last Admin Dose Admin Enoxaparin Sodium 40 mg DAILY SC 02/25/25 10:00 02/27/25 10:34 40 MG Sodium Chloride 1,000 ml @ 100 mls/hr Q10H IV 02/26/25 11:00 02/26/25 11:00 100 MLS/HR Pantoprazole Sodium 40 mg DAILY@0600 PO 02/27/25 06:00 02/27/25 05:26 40 MG Examination General examination- awake, alert, oriented HEENT- PEERLA, no acute nasal discharge Cardiovascular- S1-S2 audible, rate and rhythm regular, no murmur Respiratory- CTAB, no wheeze or rhonchi Gastrointestinal-nontender, bowel sound+. Nondistended Musculoskeletal-no acute joint swelling or tenderness or redness extremity-no leg edema, has a difficulty getting off the chair with the support, patient also could raise his bilateral upper extremity up to 15 degree. Neurological- cranial nerves intact, no acute dysarthria or dysphagia Psychiatry- denies depression or SI or HI Skin- no acute rash or purpura laboratory and microbiology Laboratory Tests 02/27/25 05:25 Test 02/27/25 05:25 Range/Units Serum Glucose 92 74-106 mg/dL Problem List/Assessment/Plan Problem List/Assessment/Plan Assessment and plan- #Rhabdomyolysis under evaluation #Possible Polymyositis/ herbal medication/alcohol use # muscle stiffness of the shoulder girdle and hip muscle -patient complained of weakness in the shoulder girdle and hip muscle -limited range of motion in the shoulder and hip Patient reported using herbal medication Aged Garlic, Beet root, Cayenne pepper,, Turmeric, Oregano jessica, Vit D3+K2, -denied using statin, TSH with a normal limit, no vigorous exercise lately. -AST 1243> 968> 826, ALT 1119> 930> 863, alkaline phosphatase 33, CPK> 88341> 59948> 06951 -ALLI negative, Zulma 1 antibody, chromatin antibody, centromere antibody. FLEET ADMINISTRATIVE ASSISTANT antibody negative, ALLI negative, SSA negative>, SSB negative, Scl 70 scleroderma antibody negative, double-stranded DNA negative, chromatin antibody, negative, centromere B antibody, - complaint C4 pending -TSH with a normal limit -continue current conservative management -patient was advised to stop herbal medications -continue IV normal saline 100 mL/hour #Transaminitis likely due to above - acute hepatitis panel negative - Monitor LFTs #Hypertension - Monitor BP - Currently not on any home medications #Hyperlipidemia - Currently diet controlled # diabetes mellitus type 2 -diet controlled Goals of care, Code status ; discussed with >15 minutes PUD prophylaxis: Pantoprazole DVT prophylaxis: Lovenox Plan discussed with Dr. Cope , nursing staff, Total time spent on patient evaluation, chart review, assessment and plan, discussion discussion >35 minutes Plan discussed with: Patient, Spouse, Other (RN) Date of Service: Feb 27, 2025 Billing Provider: MERCEDEZ COPE MD, [facility] Feb 27, 2025 11:22
--- NOTE | 2025-02-27 19:41 | DVHPN2 ---
Progress Note - Dictate Date Seen: Feb 27, 2025 Medical Necessity Reason Pt with a Central, PICC or Fol: No Subjective No new complaints Tolerating diet On IV fluid hydration Liver enzymes are starting to trend downwards but still persistently elevated today vital signs Vital Sign Date Time Temp Pulse Resp B/P (MAP) Pulse Ox O2 Delivery O2 Flow Rate FiO2 02/27/25 17:22 98.1 83 18 150/84 (106) 95 98.1 02/27/25 08:00 Room Air* 0 21 Total Intake and Output 02/26/25 02/26/25 02/27/25 15:00 23:00 07:00 Intake Total 1600 ml 300 ml Output Total 2500 ml Balance -900 ml 300 ml medications Current Medications Medications Dose Ordered Sig/Dario Route Start Time Stop Time Status Last Admin Dose Admin Enoxaparin Sodium 40 mg DAILY SC 02/25/25 10:00 02/27/25 10:34 40 MG Sodium Chloride 1,000 ml @ 100 mls/hr Q10H IV 02/26/25 11:00 02/27/25 16:58 100 MLS/HR Pantoprazole Sodium 40 mg DAILY@0600 PO 02/27/25 06:00 02/27/25 05:26 40 MG objective General examination- awake, alert, oriented Cardiovascular- S1-S2 audible, rate and rhythm regular, no murmur Respiratory- CTAB, no wheeze or rhonchi Gastrointestinal-nontender, bowel sound+. Nondistended Musculoskeletal-no acute joint swelling or tenderness or redness extremity-no leg edema, has a difficulty getting off the chair with the support, patient also could raise his bilateral upper extremity up to 15 degree. Neurological- cranial nerves intact, no acute dysarthria or dysphagia laboratory and microbiology Laboratory Tests 02/27/25 05:25 Test 02/27/25 05:25 Range/Units Serum Glucose 92 74-106 mg/dL Problems(with codes): (1) Rhabdomyolysis (2) Elevated CPK (3) Elevated liver enzymes (4) Intractable abdominal pain (5) Episode of syncope Prognosis Plan Patient is only getting supportive care with IV fluid hydration Continue to monitor labs Check ESR and rule out COVID Patient will be advised to discontinue any herbal supplements or new medications His hepatitis profile was negative and CT abd negative Dietary Evaluation Review Comments: 1) Advance to cardiac diet when medically feasible 2) Refer to outpatient RD for weight management 3) Follow-up with cardiology 4) Continue to monitor I&O, labs, and skin integrity Expected Outcomes/Goals: 1) appetite and labs to improve 2) diet to advance 3) gradual wt loss 4) f/u in 3-5 days Plan discussed with: Other (Sarah Jacobs) VALERY ALMANZA MD Feb 27, 2025 19:41
[2025-02-27 23:28] LABS: COVID19 ANTIGEN SOFIA FIA NEGATIVE (NEGATIVE)
[2025-02-28] VITALS (7 sets, daily range): BP systolic 141–163; BP diastolic 87–96; PULSE 70–89; RESP 17–18; TEMP 37.1; O2SAT 95–98
[2025-02-28 07:01] LABS: Hematocrit 45.9 % (41.0-53.0); Hemoglobin 15.9 g/dL (13.5-17.5); Mean Corpuscular Hemoglobin 29.4 pg (28.0-32.0); Mean Corpuscular Volume 84.7 fL (80.0-100.0); Nucleated Red Blood Cells % 0.1 %
[2025-02-28 07:37] LABS: Albumin 3.7 g/dL (3.2-4.8); Anion Gap 11 (5-15); BUN/Creatinine Ratio 20.0 (10.0-20.0); Carbon Dioxide 29 mmol/L (20-31); Chloride 102 mmol/L (98-107); Glucose 93 mg/dL (74-106); Magnesium 1.9 mg/dL (1.6-2.6); Potassium 3.6 mmol/L (3.5-5.1); Sodium 142 mmol/L (136-145); Total Protein 6.4 g/dL (5.7-8.2)
[2025-02-28 07:38] LABS: Bilirubin, Total 0.7 mg/dL (0.2-1.0)
[2025-02-28 07:44] LABS: Alanine Aminotransferase 859 U/L (7-40); Alkaline Phosphatase 32 U/L (46-116); Blood Urea Nitrogen 7 mg/dL (9-23); Calcium 8.4 mg/dL (8.7-10.4)
[2025-02-28 07:50] LABS: Creatine Kinase IFCC 19210 U/L (46-171)
--- NOTE | 2025-02-28 12:36 | DVHPNRES ---
Progress Note Date Seen: Feb 28, 2025 Resident Creating Document: ELTON RODRIGUEZ RESIDENT Medical Necessity Reason Pt with a Central, PICC or Fol: No Subjective Review of Systems Patient is 54-year-old male with prior medical history of hypertension and hyperlipidemia, who presents today with chief complaint of bilateral shoulder and thigh weakness and abnormal labs. The patient states that a year ago he began to have stiffness in his left shoulder, later affecting his right shoulder as well, associated with weakness. He states he is currently unable to abduct his arms beyond 15 degrees. He states that 4-5 months ago he began to have stiffness and weakness in bilateral legs, mainly affecting quadriceps and hips. He states he has difficulty when trying to stand from a seated position and climbing stairs. Patient reports that for the last 2-3 weeks he has had difficulty swallowing food, it feels as if it gets stuck and needs to drink water to help food pass. He denies joint or muscular pain, nausea, vomiting, fever, recent trauma or infections, difficulty breathing, chest pain, palpitations, and other symptoms. The patient went to his PCP who conducted blood work and upon review of results told the patient to come to the emergency room. Patient reported he used to take en clomiphene, then tested stone, lately he was taking herbal medication. On evaluation in the ED, the patient was afebrile and vitals are stable. Initial labs show CBC within normal range, AST 1243, ALT 1119, ALP 30, likely dehydrogenase 2821, and creatinine kinase >37949. Abdominal [address] shows now hydronephrosis/nephrolithiasis, moderate volume stool in the colon, and prostatomegaly. UDS negative. Plasma alcohol< 3. Urinalysis negative for UTI. Cardiovascular: HTN, hyperipidemia Past Surgical History: None Family History: Cancer (Prostate cancer in father) Smoke: Quit (States he smoked a pack a weekend and stopped 30 years ago) ALCOHOL: none (Refers previous heavy drinking every weekend per states he quit 20 years ago) Drugs: Cocaine, Other (Reports previous history of methamphetamines states he used for five years and quit 30 years ago, reports previous use of PCP with sensation 30 years ago) Lives: with Family Patient was seen today at bedside, labs and chart reviewed. Patient reported feeling better today, AST 1243> 968> 826>805,, ALT 1119> 930> 863>859, alkaline phosphatase 33, CPK> 92602> 89509> 49616>69652. We will continue current management. Objective vital signs Vital Sign Date Time Temp Pulse Resp B/P (MAP) Pulse Ox O2 Delivery O2 Flow Rate FiO2 02/28/25 08:50 98.0 80 17 142/88 (106) 96 98.0 02/27/25 20:00 Room Air* 0 21 Total Intake and Output 02/27/25 02/27/25 02/28/25 15:00 23:00 07:00 Intake Total 900 ml 1450 ml Balance 900 ml 1450 ml medications Current Medications Medications Dose Ordered Sig/Dario Route Start Time Stop Time Status Last Admin Dose Admin Enoxaparin Sodium 40 mg DAILY SC 02/25/25 10:00 02/28/25 10:28 40 MG Sodium Chloride 1,000 ml @ 100 mls/hr Q10H IV 02/26/25 11:00 02/28/25 05:41 100 MLS/HR Pantoprazole Sodium 40 mg DAILY@0600 PO 02/27/25 06:00 02/28/25 05:37 40 MG Examination General examination- awake, alert, oriented HEENT- PEERLA, no acute nasal discharge Cardiovascular- S1-S2 audible, rate and rhythm regular, no murmur Respiratory- CTAB, no wheeze or rhonchi Gastrointestinal-nontender, bowel sound+. Nondistended Musculoskeletal-no acute joint swelling or tenderness or redness extremity-no leg edema, has a difficulty getting off the chair with the support, patient also could raise his bilateral upper extremity up to 15 degree. Neurological- cranial nerves intact, no acute dysarthria or dysphagia Psychiatry- denies depression or SI or HI Skin- no acute rash or purpura laboratory and microbiology Laboratory Tests 02/28/25 05:00 Test 02/28/25 05:00 Range/Units Serum Glucose 93 74-106 mg/dL Problem List/Assessment/Plan Problem List/Assessment/Plan Assessment and plan- #Rhabdomyolysis under evaluation #Possible Polymyositis/ herbal medication/alcohol use # muscle stiffness of the shoulder girdle and hip muscle -patient complained of weakness in the shoulder girdle and hip muscle -limited range of motion in the shoulder and hip Patient reported using herbal medication Aged Garlic, Beet root, Cayenne pepper,, Turmeric, Oregano jessica, Vit D3+K2, -denied using statin, TSH with a normal limit, no vigorous exercise lately. -AST 1243> 968> 826>805,, ALT 1119> 930> 863>859, alkaline phosphatase 33, CPK> 29576> 05512> 49579>92388 -ALLI negative, Zulma 1 antibody, chromatin antibody, centromere antibody. FOOD AND NUTRITION SERVICES SUPERVISOR antibody negative, ALLI negative, SSA negative>, SSB negative, Scl 70 scleroderma antibody negative, double-stranded DNA negative, chromatin antibody, negative, centromere B antibody, - complaint C4 pending -TSH with a normal limit -continue current conservative management -patient was advised to stop herbal medications -continue IV normal saline 100 mL/hour #Transaminitis likely due to above - acute hepatitis panel negative - Monitor LFTs #Hypertension - Monitor BP - Currently not on any home medications #Hyperlipidemia - Currently diet controlled # diabetes mellitus type 2 -diet controlled Goals of care, Code status ; discussed with >15 minutes PUD prophylaxis: Pantoprazole DVT prophylaxis: Lovenox Plan discussed with Dr. Cope , nursing staff, Total time spent on patient evaluation, chart review, assessment and plan, discussion discussion >35 minutes Plan discussed with: Patient, Other (RN) Dietary Evaluation Review Comments: 1) Advance to cardiac diet when medically feasible 2) Refer to outpatient RD for weight management 3) Follow-up with cardiology 4) Continue to monitor I&O, labs, and skin integrity Expected Outcomes/Goals: 1) appetite and labs to improve 2) diet to advance 3) gradual wt loss 4) f/u in 3-5 days ELTON RODRIGUEZ RESIDENT Feb 28, 2025 12:36
--- NOTE | 2025-02-28 13:38 | DVHDSRES ---
Discharge Summary Date of Admission Resident Creating Document: ELTON RODRIGUEZ RESIDENT Feb 24, 2025 at 21:10 Date of Discharge: Feb 28, 2025 Labs/Diagnostic Data: Laboratory Results Test 02/28/25 05:00 02/27/25 22:45 02/27/25 05:25 02/27/25 04:15 White Blood Count 7.5 10^3/uL (4.4-10.8) Red Blood Count 5.42 10^6/uL (4.5-5.90) Hemoglobin 15.9 g/dL (13.5-17.5) Hematocrit 45.9 % (41.0-53.0) Mean Corpuscular Volume 84.7 fL (80.0-100.0) Mean Corpuscular Hemoglobin 29.4 pg (28.0-32.0) Mean Corpuscular Hemoglobin Concent 34.7 g/dL (32.0-36.0) Red Cell Distribution Width 15.8 % (11.8-14.3) Platelet Count 231 10^3/uL (140-450) Mean Platelet Volume 8.6 fL (6.9-10.8) Neutrophils (%) (Auto) 67.8 % (37.0-80.0) Lymphocytes (%) (Auto) 20.1 % (10.0-50.0) Monocytes (%) (Auto) 8.9 % (0.0-12.0) Eosinophils (%) (Auto) 2.7 % (0.0-7.0) Basophils (%) (Auto) 0.5 % (0.0-2.0) Neutrophils # (Auto) 5.1 10 ^3/uL (1.6-8.6) Lymphocytes # (Auto) 1.5 10 ^3/uL (0.4-5.4) Monocytes # (Auto) 0.7 10 ^3/uL (0-1.3) Eosinophils # (Auto) 0.2 10 ^3/uL (0-0.8) Basophils # (Auto) 0 10 ^3/uL (0-0.2) Nucleated Red Blood Cells 0.1 % Erythrocyte Sedimentation Rate 2 mm/hr (0-20) Sodium Level 142 mmol/L (136-145) Potassium Level 3.6 mmol/L (3.5-5.1) Chloride Level 102 mmol/L (98-107) Carbon Dioxide Level 29 mmol/L (20-31) Anion Gap 11 (5-15) Blood Urea Nitrogen 7 mg/dL (9-23) Creatinine 0.35 mg/dL (0.700-1.30) Glomerular Filtration Rate Calc 136 mL/min (>90) BUN/Creatinine Ratio 20.0 (10.0-20.0) Serum Glucose 93 mg/dL (74-106) Calcium Level 8.4 mg/dL (8.7-10.4) Magnesium Level 1.9 mg/dL (1.6-2.6) Total Bilirubin 0.7 mg/dL (0.2-1.0) Aspartate Amino Transferase (AST) 805 U/L (13-40) Alanine Aminotransferase (ALT) 859 U/L (7-40) Alkaline Phosphatase 32 U/L (46-116) Creatine Kinase 29504 U/L (46-171) Total Protein 6.4 g/dL (5.7-8.2) Albumin 3.7 g/dL (3.2-4.8) SARS-CoV-2 Antigen (Rapid) Negative (NEGATIVE) Uric Acid 4.8 mg/dL (3.7-9.2) Urine Color Light-yellow (Yellow) Urine Clarity Clear (Clear) Urine pH 7.0 (5.0-9.0) Urine Specific [place] 1.014 (1.001-1.035) Urine Protein 1+ (Negative) Urine Ketones Negative (Negative) Urine Blood 3+ /uL (Negative) Urine Nitrite Negative (Negative) Urine Bilirubin Negative (Negative) Urine Urobilinogen Normal mg/dL (Negative) Urine Leukocyte Esterase Negative /uL (Negative) Urine RBC None seen /hpf (0 - 3) Urine Microscopic WBC < 1 /HPF (0-3) Urine Squamous Epithelial Cells None seen /hpf (<5) Urine Bacteria None seen /hpf (None Seen) Urine Mucus Few (None Seen) Urine Glucose Normal mg/dL (Normal) Test 02/26/25 06:56 02/26/25 05:22 02/25/25 15:02 02/25/25 11:06 Cortisol AM Sample 14.02 ug/dL (5.27-22.45) Rheumatoid Factor <10.0 IU/mL (<14.0) Complement C3 120 mg/dL (82-167) Complement C4 18 mg/dL (12-38) Cortisol PM Sample 8.60 ug/dL (3.44-16.76) Plasma/Serum Blood Alcohol < 3.0 mg/dL (<10) Hepatitis A IgM Antibody Negative Hepatitis B Surface Antigen Negative (Negative) Hepatitis B Core IgM Antibody Negative (Negative) Hepatitis C Antibody Negative (Negative) Test 02/25/25 05:08 02/25/25 05:05 02/25/25 02:05 02/24/25 20:45 Prothrombin Time 11.2 sec (9.3-11.8) Prothrombin Time INR 1.06 (0.9-1.15) Activated Partial Thromboplast Time 29.0 SEC (24.5-34.5) Lactate Dehydrogenase 2821 U/L (120-246) C-Reactive Protein High Sensitivity 0.74 mg/dL (<1.0) Anti-Nuclear Antibody Comment Comment (.) LENNIE-1 Antibody <0.2 AI (0.0-0.9) SS-A/Ro Antibody 0.2 AI (0.0-0.9) SS-B/La Antibody <0.2 AI (0.0-0.9) Sm Antibody <0.2 AI (0.0-0.9) DESKTOP PUBLISHING OPERATOR Antibody <0.2 AI (0.0-0.9) Scl-70 (Scleroderma) Antibody <0.2 AI (0.0-0.9) Anti-Double Strand DNA Antibody <1 IU/mL (0-9) Chromatin Antibody <0.2 AI (0.0-0.9) Centromere B Antibody <0.2 AI (0.0-0.9) Anti-Nuclear Antibody Screen Negative (Negative) Urine Opiates Screen Neg (NEGATIVE) Urine Fentanyl Screen Neg (NEGATIVE) Urine Barbiturates Screen Neg (NEGATIVE) Urine Phencyclidine Screen Neg (NEGATIVE) Urine Amphetamines Screen Neg (NEGATIVE) Urine Benzodiazepines Screen Neg (NEGATIVE) Urine Cocaine Screen Neg (NEGATIVE) Urine Cannabinoids Screen Neg (NEGATIVE) Acetaminophen Level < 2.0 UG/ML (10.0-20.0) Test 02/24/25 11:10 Hemoglobin A1c 5.6 % A1C (<5.7) Phosphorus Level 3.9 mg/dL (2.4-5.1) Troponin I High Sensitivity 35 ng/L (</=54) Lipase 44 U/L (12-53) Vitamin B12 Level 344 pg/mL (211-911) Vitamin D 25-Hydroxy 31.3 ng/mL (30.0-100) Thyroid Stimulating Hormone (TSH) 3.57 uIU/mL (0.55-4.78) Hepatitis B Core Total Antibody Negative (Negative) Other Laboratory Tests 02/28/25 05:00 Brief Hx & Hospital Course: Patient is 54-year-old male with prior medical history of hypertension and hyperlipidemia, who presents today with chief complaint of bilateral shoulder and thigh weakness and abnormal labs. The patient states that a year ago he began to have stiffness in his left shoulder, later affecting his right shoulder as well, associated with weakness. He states he is currently unable to abduct his arms beyond 15 degrees. He states that 4-5 months ago he began to have stiffness and weakness in bilateral legs, mainly affecting quadriceps and hips. He states he has difficulty when trying to stand from a seated position and climbing stairs. Patient reports that for the last 2-3 weeks he has had difficulty swallowing food, it feels as if it gets stuck and needs to drink water to help food pass. He denies joint or muscular pain, nausea, vomiting, fever, recent trauma or infections, difficulty breathing, chest pain, palpitations, and other symptoms. The patient went to his PCP who conducted blood work and upon review of results told the patient to come to the emergency room. Patient reported he used to take en clomiphene, then testosterone, lately he was taking herbal medication.Patient reported using herbal medication Aged Garlic, Beet root, Cayenne pepper,, Turmeric, Oregano jessica, Vit D3+K2,. On evaluation in the ED, the patient was afebrile and vitals are stable. Initial labs show CBC within normal range, AST 1243> 968> 826>805,, ALT 1119> 930> 863>859, alkaline phosphatase 33, CPK> 87472> 04115> 73816>[address] shows now hydronephrosis/nephrolithiasis, moderate volume stool in the colon, and prostatomegaly. UDS negative. Plasma alcohol< 3. Urinalysis negative for UTI. Patient was treated with IV fluid, CK and AST and ALT was trending down. Patient was adamant about going home. Reported his muscle weakness was improving. Patient is a limited discharged home with the advised to follow up in the discharge clinic on 03/02/25 with the lab report of CBC, CMP, CK. Patient was strongly recommended to avoid herbal medication. Patient has verbalized understanding. Patient was hemodynamically stable on discharge. Patient was also advised to follow up with the primary care physician in 1-2 weeks. Operations or Procedures [place] [id number] Ph: [phone] DIAGNOSTIC IMAGING Diagnostic Imaging Report : [id number] Signed PATIENT: GREGORIO SANTORO JRACCT: [id number] UNIT: [id number] : 1970 LOC: ER ROOM / BED: / AGE / SEX: 54 / M ADM STATUS: REG ER SERVICE 1156 ORDERING PHYSICIAN: CLAYTON DESIR MD PROCEDURE(s): ABPL - CT AB PEL WO CON-NO ORAL OR IV REASON: PAIN ORDER NUMBER(s): [id number], ACCESSION NUMBER(s): [id number] Indication: PAIN Technique: CT axial images of the abdomen and pelvis are obtained without contrast. Coronal and sagittal reformats were obtained. Comparison: None FINDINGS: There is limited interpretation of the abdomen and pelvis without administration of intravenous contrast. Lung bases demonstrate no pleural effusion. Adrenal glands, spleen, pancreas and liver unremarkable in shape. No CT evidence for cholelithiasis. No hydronephrosis/ nephrolithiasis. Stomach is partially distended. Small bowel loops are normal in caliber. Moderate volume stool in the colon. Normal appendix. Abdominal aortic atherosclerotic disease. Bladder is partially distended. The prostate measures 6 cm transversely. No free pelvic fluid. No inguinal lymphadenopathy. No aggressive osseous process. [id number] thoracolumbar degenerative disc disease IMPRESSION: Limited evaluation without contrast. No hydronephrosis/nephrolithiasis. Moderate volume stool in the colon. Prostatomegaly. Correlate with PSA levels. Other findings as described. 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 myopathy # muscle stiffness of the shoulder girdle and hip muscle #Transaminitis likely due to above #Hypertension #Hyperlipidemia # diabetes mellitus type 2 Discharge Disposition: Home Discharge Instruct/Medications Diet: Consistent carbohydrate, Cardiac 2g Na,low cholest Activity: Light activity Follow Up/Referral: Please follow up with the discharge clinic on 01/17 with CBC, CMP, CK Please follow up with the primary care physician in 1-2 weeks Medications: Please avoid herbal medications Scheduled Amlodipine Besylate (Norvasc Tablet), 0.5 TAB PO DAILY Miscellaneous Medications [Hctz], (Reported) Discontinued Medications [Benazepril], (Reported) [Metoprolol], (Reported) Discharge Statement: "Patient was advised to return to the ER or call 911 if any headaches, dizziness, shortness of breath, chest pain, abdominal pain, bleeding, fevers, or worsening of medical condition. Patient was counseled about treatment plan, medications, possible side effects, patientverbalized understanding. All questions were answered to the best of my ability. This discharge took greater then 30 minutes in planning, reviewing documentation, counseling the patient, and discussing with other team members." ASSESSMENT ASSESSMENT Assessment Date of Service: Feb 28, 2025 Billing Provider: SARAH SPRAGUE MD Common Visit Codes: 63927-MJT/OBS DISCH DAY >30min ELTON RODRIGUEZ RESIDENT Feb 28, 2025 13:38 SARAH SPRAGUE MD Feb 28, 2025 18:26
[2025-02-28] MEDS ORDERED: AML5T PO (15:56)
[2025-03-02 12:40] LABS: Hepatitis A Total Antibody Negative (Negative)
[2025-03-02 12:41] LABS: Hepatitis B Surface Antigen Negative (Negative); Hepatitis C Antibody Negative (Negative)
== END 2025-02-28 17:03 | disposition home or self-care (01) | DRG 558 ==
LOC: ER 10:43 → OVERFLOW 21:10 → CENTRAL 23:25
PROVIDERS: ADMIT Student in an Organized Health Care Education/Training Program; ATTEND Internal Medicine Gastroenterology
DX: M62.82 Rhabdomyolysis (principal); G72.89 Other specified myopathies; R74.01 Elevation of levels of liver transaminase levels; E78.5 Hyperlipidemia, unspecified; I10 Essential (primary) hypertension; E11.9 Type 2 diabetes mellitus without complications; N40.0 Benign prostatic hyperplasia without lower urinary tract symptoms; Z20.822 Contact with and (suspected) exposure to COVID-19; R74.8 Abnormal levels of other serum enzymes; Z80.42 Family history of malignant neoplasm of prostate; T50.995A Adverse effect of other drugs, medicaments and biological substances, initial encounter; Z87.891 Personal history of nicotine dependence; Y92.89 Other specified places as the place of occurrence of the external cause
CPT/HCPCS: 36415; 74176; 80053; 80074; 80307; 80320; 80329; 81001; 82085; 82306; 82533; 82550; 82607; 83036; 83516; 83615; 83690; 83735; 84100; 84443; 84484; 84550; 85025; 85610; 85652; 85730; 86038; 86141; 86160; 86225; 86235; 86431; 86704; 86706; 86708; 86803; 87340; 87426; 93005; G0378; J2470